=== PATIENT | male | born 1960 | race Caucasian/White ===

== ENCOUNTER 2023-07-21 08:00 | Day surgery (SDC) | payer MEDICAID | END 2023-07-22 10:50 | disposition home or self-care (01) | LOC: EUO 08:00 → SDCO 08:00 → EDSTATUS 08-22 14:54 | DX: I42.9 Cardiomyopathy, unspecified (principal); I47.29 Other ventricular tachycardia | CPT/HCPCS: 14420; 16635; 20147; 27167; 27424; 27774; 28018; C1721; C1769; C1777; C1894; C1898 ==